=== PATIENT | female | born 1990 | race American Indian/Alaskan Native ===

== ENCOUNTER 2020-11-01 06:10 | Emergency (ER) | payer MEDICAID ==
[2020-11-01 06:16] VITALS: BP 159/98
[2020-11-01] MEDS ORDERED: oxyCODONE /ACETAMINOPHEN 5-325MG TAB PO ONE (07:23)
--- NOTE | 2020-11-01 07:23 | Emergency Department Report ---
ED General Adult HPI - General Chief complaint: Dental/Oral Stated complaint: MIGRAINE,TOOTHACHE PUI?: No Time Seen by Provider: 11/01/20 07:15 Source: patient Mode of arrival: Ambulatory Limitations: No Limitations - History of Present Illness Initial comments: Patient reports left lower dental pain, severe in nature, onset 1 month ago and now worsening. States that she is try to see a dentist but they are not accepting new patients due to Covid. Denies any fevers and states that the pain is severe and radiates upward toward her head. No vomiting, facial swelling or any other complaints. Onset was gradual. No alleviating or exacerbating factors. Severity scale (0 -10): 0 - Related Data Previous Rx's Medication Instructions Recorded Last Taken Type Amoxicillin [Amoxicillin TAB] 875 mg PO BID #20 tablet 11/01/20 Unknown Rx traMADoL [Ultram 50 MG tab] 50 mg PO Q6HR PRN #12 tablet 11/01/20 Unknown Rx ED Review of Systems ROS: Stated complaint: MIGRAINE,TOOTHACHE Other details as noted in HPI Comment: All other systems reviewed and negative ENT: as per HPI ED Past Medical Hx - Past Medical History Previous Medical History?: No - Surgical History Past Surgical History?: No - Social History Smoking Status: Never Smoker Substance Use Type: None - Medications Home Medications: Home Medications Medication Instructions Recorded Confirmed Last Taken Type Amoxicillin [Amoxicillin TAB] 875 mg PO BID #20 tablet 11/01/20 Unknown Rx traMADoL [Ultram 50 MG tab] 50 mg PO Q6HR PRN #12 tablet 11/01/20 Unknown Rx ED Physical Exam - General Limitations: No Limitations General appearance: alert, in no apparent distress - Head Head exam: Present: atraumatic, normocephalic - Eye Eye exam: Present: normal appearance - ENT ENT exam: Present: mucous membranes moist, other (Pain/decay to tooth 17, no facial or neck swelling, no trismus) - Neck Neck exam: Present: normal inspection - Respiratory Respiratory exam: Present: normal lung sounds bilaterally. Absent: respiratory distress - Cardiovascular Cardiovascular Exam: Present: regular rate, normal rhythm. Absent: systolic murmur, diastolic murmur, rubs, gallop - GI/Abdominal GI/Abdominal exam: Present: soft, normal bowel sounds - Extremities Exam Extremities exam: Present: normal inspection - Back Exam Back exam: Present: normal inspection - Neurological Exam Neurological exam: Present: alert, oriented X3 - Psychiatric Psychiatric exam: Present: normal affect, normal mood - Skin Skin exam: Present: warm, dry, intact, normal color. Absent: rash ED Course Vital Signs 11/01/20 06:15 Temperature 97.8 F Pulse Rate 84 Respiratory 18 Rate Blood Pressure 159/98 [Left] O2 Sat by Pulse 100 Oximetry ED Medical Decision Making - Medical Decision Making Patient with dental pain for the past month. Pain seems to be coming from an impacted wisdom tooth, #17, no facial or neck swelling. We will give prescription for antibiotics and advised that she does need to see dental or oral surgery for follow-up. - Differential Diagnosis Dentalgia, abscess Critical care attestation.: If time is entered above; I have spent that time in minutes in the direct care of this critically ill patient, excluding procedure time. ED Disposition Clinical Impression: Pain, dental Disposition: DC-01 TO HOME OR SELFCARE Is pt being admited?: No Condition: Good Prescriptions: Amoxicillin [Amoxicillin TAB] 875 mg PO BID #20 tablet traMADoL [Ultram 50 MG tab] 50 mg PO Q6HR PRN #12 tablet PRN Reason: Pain Referrals: WANDA JOHN MD [Primary Care Provider] - 3-5 Days Time of Disposition: 07:23
== END 2020-11-01 07:38 | disposition home or self-care (01) ==
LOC: ED 06:10
DX: K08.89 Other specified disorders of teeth and supporting structures (principal); G43.909 Migraine, unspecified, not intractable, without status migrainosus; Z79.2 Long term (current) use of antibiotics; Z79.899 Other long term (current) drug therapy
CPT/HCPCS: 99282

== ENCOUNTER 2020-12-05 01:21 | Emergency (ER) | payer MEDICAID ==
--- NOTE | 2020-12-05 06:44 | Emergency Department Report ---
ED ENT HPI - General Chief complaint: Dental/Oral Stated complaint: LYMPH NODES SWOLLEN Source: patient Mode of arrival: Ambulatory Limitations: No Limitations - History of Present Illness Initial comments: Patient is a 30-year-old -[place] female with no past medical history presents to the ED with complaint of acute onset persistent left mandibular premolar molar toothache with swollen gums for the last 2 months. Patient states that she is currently on amoxicillin 875 mg twice a day and ibuprofen 800 mg every 6-8 hours as needed for pain. Patient states that in the last 2 weeks, she developed acute onset severe sore throat with dysphagia and painful anterior left cervical lymphadenopathy which has made her not able to eat. Patient states that because she has not been able to eat she has lost significant amount of weight in the last 2 weeks. Patient states that she has only been taking the medication for the last 3 days. Patient however states that the pain got worse in the last 24 hours. Patient denies fever, chills, nausea, vomiting, cough, nasal and sinus congestion, headache, chest pain or shortness of breath or change in vision. MD complaint: tooth pain (left mandibular premolar), sore throat, other (left anterior cervical paraspinal) -: Sudden, month(s) (2) Location: throat, tooth # (left mandibular premolar and molar toothache) Severity: severe Severity scale (0 -10): 8 Quality: aching, sharp, constant Consistency: constant Improves with: none Worsens with: swallowing Context- Dental: history of dental caries Associated Symptoms: gum swelling (left mandibular), toothache (left mandibular premolar and molar toothache), pain with swallowing, sore throat - Related Data Previous Rx's Medication Instructions Recorded Last Taken Type Amoxicillin [Amoxicillin TAB] 875 mg PO BID #20 tablet 11/01/20 Unknown Rx traMADoL [Ultram 50 MG tab] 50 mg PO Q6HR PRN #12 tablet 11/01/20 Unknown Rx Acetaminophen/Codeine [Tylenol 1 tab PO Q6H PRN #12 tab 12/05/20 Unknown Rx /Codeine # 3 tab] Clindamycin [Clindamycin CAP] 300 mg PO Q8HR #60 capsule 12/05/20 Unknown Rx predniSONE [Deltasone] 40 mg PO QDAY #10 tab 12/05/20 Unknown Rx Allergies Allergy/AdvReac Type Severity Reaction Status Date / Time No Known Allergies Allergy Unverified 12/05/20 06:08 ED Dental HPI - General Chief complaint: Dental/Oral Stated complaint: LYMPH NODES SWOLLEN Source: patient Mode of arrival: Ambulatory Limitations: No Limitations - History of Present Illness Initial comments: Patient is a 30-year-old -[place] female with no past medical history presents to the ED with complaint of acute onset persistent left mandibular premolar molar toothache with swollen gums for the last 2 months. Patient states that she is currently on amoxicillin 875 mg twice a day and ibuprofen 800 mg every 6-8 hours as needed for pain. Patient states that in the last 2 weeks, she developed acute onset severe sore throat with dysphagia and painful anterior left cervical lymphadenopathy which has made her not able to eat. Patient states that because she has not been able to eat she has lost significant amount of weight in the last 2 weeks. Patient states that she has only been taking the medication for the last 3 days. Patient however states that the pain got worse in the last 24 hours. Patient denies fever, chills, nausea, vomiting, cough, nasal and sinus congestion, headache, chest pain or shortness of breath or change in vision. MD complaint: tooth pain, sore throat, other (left mandibular premolar and molar toothache) -: Sudden, month(s) (2) Severity: severe Quality: aching, sharp Consistency: constant Improves with: none Worsens with: swallowing, eating, chewing Context- Dental: history of dental caries, poor dental care Dental Associated Symptons: Yes: Headache, Earache, Sore Throat, Gum Swelling - Related Data Previous Rx's Medication Instructions Recorded Last Taken Type Amoxicillin [Amoxicillin TAB] 875 mg PO BID #20 tablet 11/01/20 Unknown Rx traMADoL [Ultram 50 MG tab] 50 mg PO Q6HR PRN #12 tablet 11/01/20 Unknown Rx Acetaminophen/Codeine [Tylenol 1 tab PO Q6H PRN #12 tab 12/05/20 Unknown Rx /Codeine # 3 tab] Clindamycin [Clindamycin CAP] 300 mg PO Q8HR #60 capsule 12/05/20 Unknown Rx predniSONE [Deltasone] 40 mg PO QDAY #10 tab 12/05/20 Unknown Rx Allergies Allergy/AdvReac Type Severity Reaction Status Date / Time No Known Allergies Allergy Unverified 12/05/20 06:08 ED Review of Systems ROS: Stated complaint: LYMPH NODES SWOLLEN Other details as noted in HPI Constitutional: denies: chills, fever Eyes: denies: eye pain, eye discharge, vision change ENT: throat pain, dental pain (left mandibular premolar and molar toothache; left mandibular gingival swelling and pain). denies: ear pain Respiratory: denies: cough, shortness of breath, wheezing Cardiovascular: denies: chest pain, palpitations Endocrine: no symptoms reported Gastrointestinal: denies: abdominal pain, nausea, vomiting, diarrhea Genitourinary: denies: urgency, dysuria, discharge Musculoskeletal: denies: back pain, joint swelling, arthralgia Skin: denies: rash, lesions Neurological: denies: headache, weakness, paresthesias Psychiatric: denies: anxiety, depression Hematological/Lymphatic: denies: easy bleeding, easy bruising ED Past Medical Hx - Past Medical History Previous Medical History?: Yes Additional medical history: Toothache x 3 months - Surgical History Past Surgical History?: Yes Additional Surgical History: CSection x 2 - Social History Smoking Status: Never Smoker - Medications Home Medications: Home Medications Medication Instructions Recorded Confirmed Last Taken Type Amoxicillin [Amoxicillin TAB] 875 mg PO BID #20 tablet 11/01/20 Unknown Rx traMADoL [Ultram 50 MG tab] 50 mg PO Q6HR PRN #12 tablet 11/01/20 Unknown Rx Acetaminophen/Codeine [Tylenol 1 tab PO Q6H PRN #12 tab 12/05/20 Unknown Rx /Codeine # 3 tab] Clindamycin [Clindamycin CAP] 300 mg PO Q8HR #60 capsule 12/05/20 Unknown Rx predniSONE [Deltasone] 40 mg PO QDAY #10 tab 12/05/20 Unknown Rx ED Physical Exam - General Limitations: No Limitations General appearance: alert, in no apparent distress - Head Head exam: Present: atraumatic, normocephalic, normal inspection - Eye Eye exam: Present: normal appearance, PERRL, EOMI Pupils: Present: normal accommodation - ENT ENT exam: Present: mucous membranes moist, TM's normal bilaterally, normal external ear exam, other (palpable tenderness of left mandibular premolar and molar teeth; swollen tender left anterior cervical lymphadenopathy; palpable severe tenderness of left mandibular gingivitis) - Neck Neck exam: Present: normal inspection, full ROM, lymphadenopathy (anterior cervical lymphadenopathy) - Respiratory Respiratory exam: Present: normal lung sounds bilaterally. Absent: respiratory distress, wheezes, rales, rhonchi, chest wall tenderness, accessory muscle use, decreased breath sounds, prolonged expiratory - Cardiovascular Cardiovascular Exam: Present: regular rate, normal rhythm, normal heart sounds. Absent: systolic murmur, diastolic murmur, rubs, gallop - GI/Abdominal GI/Abdominal exam: Present: soft, normal bowel sounds. Absent: distended, tenderness, guarding, rebound, hyperactive bowel sounds, hypoactive bowel sounds, organomegaly - Extremities Exam Extremities exam: Present: normal inspection, full ROM, normal capillary refill - Back Exam Back exam: Present: normal inspection, full ROM. Absent: tenderness, CVA tenderness (R), CVA tenderness (L), muscle spasm, paraspinal tenderness, vertebral tenderness - Neurological Exam Neurological exam: Present: alert, oriented X3, CN II-XII intact, normal gait, reflexes normal - Psychiatric Psychiatric exam: Present: normal affect, normal mood - Skin Skin exam: Present: warm, dry, intact, normal color. Absent: rash ED Course Vital Signs 12/05/20 06:09 Temperature 98.6 F Pulse Rate 86 Respiratory 18 Rate Blood Pressure 148/94 O2 Sat by Pulse 100 Oximetry ED Medical Decision Making - Medical Decision Making This is a 30-year-old -[place] female with no past medical history presents to the ED with complaint of acute onset persistent left mandibular premolar molar toothache with swollen gums for the last 2 months. Patient states that she is currently on amoxicillin 875 mg twice a day and ibuprofen 800 mg every 6-8 hours as needed for pain. Patient states that in the last 2 weeks, she developed acute onset severe sore throat with dysphagia and painful anterior left cervical lymphadenopathy which has made her not able to eat. Patient states that because she has not been able to eat she has lost significant amount of weight in the last 2 weeks. Patient states that she has only been taking the medication for the last 3 days. Patient however states that the pain got worse in the last 24 hours. In the ED, patient is alert and oriented x3 and is not in any distress. Patient was discharged home on medications including new antibiotics clindamycin and was advised to stop taking amoxicillin and instead switch to clindamycin. Patient was also given more pain medications and advised to follow-up with her dentist and primary care physician in 7 to 10 days for reevaluation or return to the ED immediately if symptoms get worse. - Differential Diagnosis Dental abscess; pharyngitis; lymphadenopathy; gingivitis; dental caries Critical care attestation.: If time is entered above; I have spent that time in minutes in the direct care of this critically ill patient, excluding procedure time. ED Disposition Clinical Impression: Acute gingivitis, Anterior cervical adenopathy, Dental abscess Acute pharyngitis Qualifiers: Pharyngitis/tonsillitis etiology: unspecified etiology Qualified Code(s): J02.9 - Acute pharyngitis, unspecified Disposition: TO HOME OR SELFCARE Is pt being admited?: No Does the pt Need Aspirin: No Condition: Stable Instructions: Pharyngitis, [id number], Lymphadenopathy, Trench Mouth, Dental Abscess, [id number] Additional Instructions: Take medication with food, drink plenty of fluids and follow-up with your primary care physician or dentist in 7 to 10 days for reevaluation. Return to the ED immediately if symptoms get worse. Prescriptions: Clindamycin [Clindamycin CAP] 300 mg PO Q8HR #60 capsule predniSONE [Deltasone] 40 mg PO QDAY #10 tab Acetaminophen/Codeine [Tylenol /Codeine # 3 tab] 1 tab PO Q6H PRN #12 tab PRN Reason: Pain , Severe (7-10) Referrals: [facility] [Outside] - 3-5 Days Time of Disposition: 06:48 Print Language: GABONESE
[2020-12-05 07:12] VITALS: BP 129/89
== END 2020-12-05 07:12 | disposition home or self-care (01) ==
LOC: ED 01:21
DX: J02.9 Acute pharyngitis, unspecified (principal); R59.0 Localized enlarged lymph nodes; K05.00 Acute gingivitis, plaque induced; K04.7 Periapical abscess without sinus; Z98.890 Other specified postprocedural states; Z79.2 Long term (current) use of antibiotics; Z79.899 Other long term (current) drug therapy
CPT/HCPCS: 99282

== ENCOUNTER 2020-12-23 23:01 | Emergency (ER) | payer MEDICAID ==
[2020-12-24 00:42] VITALS: BP 156/96
[2020-12-24] MEDS ORDERED: dexAMETHasone 20 MG/5 ML VIAL IM ONE (00:43)
[2020-12-24] MEDS ORDERED: METOCLOPRAMIDE 10 MG TAB PO ONE (00:43)
[2020-12-24] MEDS ORDERED: diphenhydrAMINE 25 MG CAP PO ONE (00:43)
--- NOTE | 2020-12-24 01:25 | Emergency Department Report ---
HPI - General Chief Complaint: Allergic Reaction Time Seen by Provider: 12/24/20 00:43 - HPI HPI: Patient 30-year-old -[place] female who presents for allergic reaction. Patient unsure of substance however started to have itching for the past 3 days intermittently resolved with Benadryl however return, symptoms rated at 5/10. There are no hives, no shortness of breath, no wheezing no stridor. There is been no nausea vomiting or palpitations. Patient states she is tired of itching however. Patient does endorse being on clindamycin 300 mg p.o. 3 times daily for the past 3 weeks for dental abscess. She has 3 days remaining. There are no other exacerbating or relieving factors. ED Past Medical Hx - Past Medical History Previous Medical History?: Yes Additional medical history: Toothache x 3 months - Surgical History Past Surgical History?: Yes Additional Surgical History: CSection x 2 - Social History Smoking Status: Never Smoker Substance Use Type: None - Medications Home Medications: Home Medications Medication Instructions Recorded Confirmed Last Taken Type Amoxicillin [Amoxicillin TAB] 875 mg PO BID #20 tablet 11/01/20 Unknown Rx traMADoL [Ultram 50 MG tab] 50 mg PO Q6HR PRN #12 tablet 11/01/20 Unknown Rx Acetaminophen/Codeine [Tylenol 1 tab PO Q6H PRN #12 tab 12/05/20 Unknown Rx /Codeine # 3 tab] Clindamycin [Clindamycin CAP] 300 mg PO Q8HR #60 capsule 12/05/20 Unknown Rx predniSONE [Deltasone] 40 mg PO QDAY #10 tab 12/05/20 Unknown Rx EPINEPHrine [Epipen 2-Christiano] 0.3 mg IJ PRN #1 auto.injct 12/24/20 Unknown Rx Famotidine [Pepcid] 20 mg PO BID #14 tablet 12/24/20 Unknown Rx Triamcinolone Acetonide 80 mg IJ BID 7 Days #1 tube 12/24/20 Unknown Rx [Kenalog-80] diphenhydrAMINE [Benadryl CAP] 25 mg PO Q8HR PRN #30 capsule 12/24/20 Unknown Rx predniSONE [Deltasone] 40 mg PO QDAY 5 Days #10 tab 12/24/20 Unknown Rx ED Review of Systems ROS: Stated complaint: BROKE OUT IN HIVES/CHEST PAIN/ABDOMINAL PAIN Other details as noted in HPI Constitutional: denies: chills, fever Eyes: denies: eye pain, eye discharge, vision change ENT: denies: ear pain, throat pain Respiratory: denies: cough, shortness of breath, wheezing Cardiovascular: denies: chest pain, palpitations Endocrine: no symptoms reported Gastrointestinal: denies: abdominal pain, nausea, diarrhea Genitourinary: denies: urgency, dysuria, discharge Musculoskeletal: denies: back pain, joint swelling, arthralgia Skin: rash, pruritus Neurological: denies: headache, weakness, paresthesias Psychiatric: denies: anxiety, depression Hematological/Lymphatic: denies: easy bleeding, easy bruising Physical Exam - Physical Exam Vital Signs: Vital Signs 12/24/20 00:28 Temperature 98.3 F Pulse Rate 94 H Respiratory 16 Rate Blood Pressure 156/96 O2 Sat by Pulse 100 Oximetry General: pt a/o x 3, ambulatory with steady gait, lung sounds clear throughout no wheezing no stridor. Respirations are even and nonlabored. Heart tones S1-S2 no gallop rub or murmur., Abdomen soft nontender there is no nausea vomiting, no neuro deficits , rashes mood raise of bilateral arms and neck, there is no open lesions no open skin no weeping. There is no fever. ED Course Vital Signs 12/24/20 00:28 Temperature 98.3 F Pulse Rate 94 H Respiratory 16 Rate Blood Pressure 156/96 O2 Sat by Pulse 100 Oximetry - Reevaluation(s) Reevaluation #1: Benadryl, Decadron, Pepcid symptoms are relieved. 12/24/20 02:35 ED Medical Decision Making - Medical Decision Making Patient advises since symptoms are resolved plan DC to home with prescriptions. Continue to follow with dentist. Warm compresses to back abscess. Return to ED should symptoms worsen. Patient verbalizes agreement and understanding with discharge plan. Patient has completed EpiPen training. Will be DC'd to home in stable condition at this time. Critical care attestation.: If time is entered above; I have spent that time in minutes in the direct care of this critically ill patient, excluding procedure time. ED Disposition Clinical Impression: Allergic reaction Qualifiers: Encounter type: initial encounter Qualified Code(s): T78.40XA - Allergy, unspecified, initial encounter Disposition: DC-01 TO HOME OR SELFCARE Is pt being admited?: No Does the pt Need Aspirin: No Condition: Stable Instructions: Allergies, Adult, [id number], How to Use an Auto-Injector Pen, Skin Abscess Prescriptions: diphenhydrAMINE [Benadryl CAP] 25 mg PO Q8HR PRN #30 capsule PRN Reason: allergies predniSONE [Deltasone] 40 mg PO QDAY 5 Days #10 tab EPINEPHrine [Epipen 2-Christiano] 0.3 mg IJ PRN #1 auto.injct Triamcinolone Acetonide [Kenalog-80] 80 mg IJ BID 7 Days #1 tube Famotidine [Pepcid] 20 mg PO BID #14 tablet Referrals: MARTHA RAIMREZ MD [Staff Physician] - 3-5 Days Forms: Work/School Release Form(ED) Time of Disposition: 02:45
== END 2020-12-24 03:10 | disposition home or self-care (01) ==
LOC: ED 23:01
DX: T78.40XA Allergy, unspecified, initial encounter (principal); Z98.890 Other specified postprocedural states; Z79.2 Long term (current) use of antibiotics; Z79.899 Other long term (current) drug therapy; X58.XXXA Exposure to other specified factors, initial encounter
CPT/HCPCS: 96372; 99282; J1100

== ENCOUNTER 2020-12-26 01:50 | Emergency (ER) | payer MEDICAID ==
--- NOTE | 2020-12-26 02:08 | Emergency Department Report ---
ED Allergic Reaction HPI - General Stated complaint: ALLERGIC REACTION Time Seen by Provider: 12/26/20 02:02 - History of Present Illness Initial Comments: 30-year-old female presents to the ER today complaint of allergic reaction. Patient states that her symptoms started 4.5 days ago. She states that she has been itching all over, and has been breaking in hives intermittently. Also has been noticing intermittent swelling of her lower lip, itchy throat, mild cough, and intermittent mild wheezing coming from her throat. She was seen here for her symptoms when it first started. She was given an IM injection of steroids and and she was prescribed prednisone 40 mg daily, Benadryl and Pepcid. He states that she has been taking the medications but it seems like it is not helping. She was given an EpiPen but she states that she was afraid to use it. She denies any chest pain, shortness of breath, throat swelling, tongue swelling, or any kind of swelling to her extremities. Patient also states that she has been having diarrhea for the past 4 days, today being the worst, she has had 7-8 episodes of watery stools today with intermittent abdominal pain. Denies any vomiting. She denies fever, chills, UTI symptoms. Patient admits that she has been on antibiotics off and on for dental infection for the past 4 months, most recent was Augmentin about 3 to 4 weeks ago, which was then stopped and switched over to clindamycin when she came in for throat pain but she stopped the clindamycin 4 days ago. Patient denies any prior allergic reactions to any antibiotics or any medications. She denies any new foods, soaps, lotions, or any other new contacts. She denies any recent travel out of country. She denies any ill contacts. Complaint: allergic reaction -: days(s) (4.5) - Related Data Previous Rx's Medication Instructions Recorded Last Taken Type Amoxicillin [Amoxicillin TAB] 875 mg PO BID #20 tablet 11/01/20 Unknown Rx traMADoL [Ultram 50 MG tab] 50 mg PO Q6HR PRN #12 tablet 11/01/20 Unknown Rx Acetaminophen/Codeine [Tylenol 1 tab PO Q6H PRN #12 tab 12/05/20 Unknown Rx /Codeine # 3 tab] Clindamycin [Clindamycin CAP] 300 mg PO Q8HR #60 capsule 12/05/20 Unknown Rx EPINEPHrine [Epipen 2-Christiano] 0.3 mg IJ PRN #1 auto.injct 12/24/20 Unknown Rx Famotidine [Pepcid] 20 mg PO BID #14 tablet 12/26/20 Unknown Rx Prednisone [predniSONE 10 mg 10 mg PO .TAPER #1 tab.ds.pk 12/26/20 Unknown Rx (6-Day Pack, 21 Tabs)] hydrOXYzine HCL [Atarax] 25 mg PO Q6HR PRN #30 tablet 12/26/20 Unknown Rx Allergies Allergy/AdvReac Type Severity Reaction Status Date / Time No Known Allergies Allergy Unverified 12/05/20 06:08 ED Review of Systems ROS: Stated complaint: ALLERGIC REACTION Other details as noted in HPI Comment: All other systems reviewed and negative Constitutional: denies: chills, fever ENT: other (itchin throat). denies: ear pain, throat pain, dental pain, hearing loss, epistaxis, congestion Cardiovascular: denies: chest pain, palpitations Gastrointestinal: abdominal pain, diarrhea. denies: nausea, vomiting Skin: rash, pruritus Neurological: denies: headache, weakness, paresthesias Psychiatric: denies: anxiety, depression ED Past Medical Hx - Past Medical History Additional medical history: Toothache x 3 months - Surgical History Additional Surgical History: CSection x 2 - Social History Smoking Status: Never Smoker Substance Use Type: None - Medications Home Medications: Home Medications Medication Instructions Recorded Confirmed Last Taken Type Amoxicillin [Amoxicillin TAB] 875 mg PO BID #20 tablet 11/01/20 Unknown Rx traMADoL [Ultram 50 MG tab] 50 mg PO Q6HR PRN #12 tablet 11/01/20 Unknown Rx Acetaminophen/Codeine [Tylenol 1 tab PO Q6H PRN #12 tab 12/05/20 Unknown Rx /Codeine # 3 tab] Clindamycin [Clindamycin CAP] 300 mg PO Q8HR #60 capsule 12/05/20 Unknown Rx EPINEPHrine [Epipen 2-Christiano] 0.3 mg IJ PRN #1 auto.injct 12/24/20 Unknown Rx Famotidine [Pepcid] 20 mg PO BID #14 tablet 12/26/20 Unknown Rx Prednisone [predniSONE 10 mg 10 mg PO .TAPER #1 tab.ds.pk 12/26/20 Unknown Rx (6-Day Pack, 21 Tabs)] hydrOXYzine HCL [Atarax] 25 mg PO Q6HR PRN #30 tablet 12/26/20 Unknown Rx ED Physical Exam - General General appearance: alert, in no apparent distress, anxious - Head Head exam: Present: atraumatic, normocephalic, normal inspection - Eye Eye exam: Present: normal appearance, PERRL, EOMI Pupils: Present: normal accommodation - ENT ENT exam: Present: normal exam, normal orophraynx, mucous membranes moist - Neck Neck exam: Present: normal inspection, full ROM - Respiratory Respiratory exam: Present: normal lung sounds bilaterally. Absent: respiratory distress, wheezes, rales, rhonchi, stridor - Cardiovascular Cardiovascular Exam: Present: regular rate, normal heart sounds - GI/Abdominal GI/Abdominal exam: Present: soft, distended. Absent: tenderness - Back Exam Back exam: Present: normal inspection - Neurological Exam Neurological exam: Present: alert, oriented X3, CN II-XII intact, normal gait - Psychiatric Psychiatric exam: Present: normal affect, anxious - Skin Skin exam: Present: intact. Absent: rash, urticaria ED Course Vital Signs 12/26/20 12/26/20 12/26/20 01:57 03:00 04:22 Temperature 98.6 F Pulse Rate 109 H 79 Respiratory 18 20 12 Rate Blood Pressure 154/104 145/79 O2 Sat by Pulse 99 99 Oximetry ED Medical Decision Making - Lab Data Result diagrams: 12/26/20 02:23 12/26/20 02:23 - Medical Decision Making Labs reviewed And unremarkable. Patient resting comfortably in the bed, and she does not appear to be in any pain or respiratory distress. She is not toxic, or ill.. She is neurologically intact. No evidence of anaphylaxis. She has no angioedema. Her airway is intact. She has no trismus or drooling. No stridor on exam. She has a soft nontender abdomen. Her vital signs have been stable throughout stay. No further work-up, admission or emergent consult indicated at this time. Discussed lab results with patient. Recommend that she follows up with the primary care doctor for referral to installation superintendent for allergy testing. Discussed treatment plan with patient. She expressed understanding of instruct ions and agree with plan. Patient was stable at time of discharge. Critical care attestation.: If time is entered above; I have spent that time in minutes in the direct care of this critically ill patient, excluding procedure time. ED Disposition Clinical Impression: Allergic reaction, Diarrhea Disposition: DC-01 TO HOME OR SELFCARE Is pt being admited?: No Does the pt Need Aspirin: No Condition: Stable Instructions: Allergies, Adult, [id number], Diarrhea, Adult, [id number], Probiotics Additional Instructions: Stop the prednisone 40mg and start the taper prednisone, continue the pepcid, stop the benadryl and start the atarax. You can take Imodium [id number] to help with the diarrhea. Drink lots of fluids to maintain hydration. I recommend follow-up with the primary care doctor listed on your discharge instructions for referral to a local installation superintendent for allergy testing. Return to the ER if your symptoms changes or worsens in any way. Prescriptions: hydrOXYzine HCL [Atarax] 25 mg PO Q6HR PRN #30 tablet PRN Reason: Itching Famotidine [Pepcid] 20 mg PO BID #14 tablet Prednisone [predniSONE 10 mg (6-Day Pack, 21 Tabs)] 10 mg PO .TAPER #1 tab.ds.pk Referrals: LYDIA GROVESSELIGMAN MD OMAYRA [Primary Care Provider] - 3-5 Days Time of Disposition: 03:58
[2020-12-26] MEDS ORDERED: methylPREDNISolone Sod Succinate 125 MG/2 ML INJ IV ONE (02:09)
[2020-12-26] MEDS ORDERED: FAMOTIDINE 20 MG/2 ML INJ IV ONE (02:09)
[2020-12-26] MEDS ORDERED: diphenhydrAMINE 50 MG/ML VIAL IV ONE (02:09)
[2020-12-26] MEDS ORDERED: SODIUM CHLORIDE 0.9% 1000 ML 1,000 ML IV ONE (02:10)
[2020-12-26 03:08] LABS: Basophils % (Auto) 0.3 % (0.0-1.8); Hemoglobin 13.7 gm/dl (10.1-14.3); Lymphocytes # (Auto) 3.3 K/mm3 (1.2-5.4); Lymphocytes % (Auto) 36.4 % (13.4-35.0); Mean Corpuscular HGB Conc 34 % (30-34); Mean Corpuscular Volume 95 fl (79-97); Monocytes # (Auto) 0.8 K/mm3 (0.0-0.8); Monocytes % (Auto) 9.1 % (0.0-7.3); Platelet Count 303 K/mm3 (140-440); Red Blood Count 4.29 M/mm3 (3.65-5.03); Red Cell Distribution Width 12.3 % (13.2-15.2)
[2020-12-26 03:26] LABS: Alanine Aminotransferase 12 units/L (7-56); Albumin 4.5 g/dL (3.9-5); BUN/Creatinine Ratio 19; Blood Urea Nitrogen 15 mg/dL (7-17); Calcium 9.5 mg/dL (8.4-10.2); Hemolysis Index 3
[2020-12-26 04:25] VITALS: BP 145/79
== END 2020-12-26 04:41 | disposition home or self-care (01) ==
LOC: ED 01:50
DX: T78.40XA Allergy, unspecified, initial encounter (principal); R19.7 Diarrhea, unspecified; Z98.890 Other specified postprocedural states; Z79.2 Long term (current) use of antibiotics; Z79.899 Other long term (current) drug therapy; X58.XXXA Exposure to other specified factors, initial encounter
CPT/HCPCS: 36415; 80053; 83690; 83735; 84703; 85025; 96361; 96374; 96375; 99283; J1200; J2930; J7030

== ENCOUNTER 2021-08-30 07:14 | Emergency (ER) | payer MEDICAID ==
[2021-08-30] MEDS ORDERED: predniSONE 20 MG TAB PO ONE (07:31)
[2021-08-30] MEDS ORDERED: KETOROLAC 60 MG/2 ML INJ IM ONE (07:31)
[2021-08-30 07:57] VITALS: BP 130/92
[2021-08-30 08:22] LABS: Bacteria,Urine 2+ /HPF (Negative); Bilirubin,Urine NEG (Negative); Blood,Urine NEG (Negative); Color,Urine Yellow (Yellow); Mucus,Urine 3+ /HPF
[2021-08-30 08:25] LABS: HCG Qualitative,Urine Negative (Negative)
--- NOTE | 2021-08-30 08:39 | Emergency Department Report ---
ED Back Pain/Injury HPI - General Chief Complaint: Back Pain/Injury Stated Complaint: LOWER BACK PAIN Time Seen by Provider: 08/30/21 07:19 Source: patient Limitations: No Limitations - History of Present Illness Initial Comments: This is a 30-year-old female nontoxic, well nourished in appearance, no acute signs of distress presents to the ED with c/o of acute on chronic lower back pain x 1 day. Patient stated that yesterday she was moving around and developed pain and worsened this morning. Patient denies any radiation of pain. Patient denies any injuries or trauma. Denies any bladder or bowel instability. Patient denies any urinary symptoms. Denies any fever, chills, nausea, vomiting, headache, stiff neck, chest pain or shortness of breath. Patient denies any numbness or tingling. Denies any allergies. Denies significant past medical history. MD Complaint: back pain -: days(s) Similar Symptoms Previously: Yes Place: work Radiation: none Severity: mild Severity scale (0 -10): 3 Quality: aching Consistency: intermittent Improves With: immobilization, sitting upright Worsens With: movement, walking Context: while lifting, turning/twisting Associated Symptoms: denies other symptoms. denies: confusion, weakness, chest pain, numbness, difficulty walking, cough, difficulty urinating, diaphoresis, incontinence, fever/chills, constipation, headaches, abdominal pain, loss of appetite, malaise, nausea/vomiting, rash, seizure, shortness of breath, syncope - Related Data Previous Rx's Medication Instructions Recorded Last Taken Type Amoxicillin [Amoxicillin TAB] 875 mg PO BID #20 tablet 11/01/20 Unknown Rx traMADoL [Ultram 50 MG tab] 50 mg PO Q6HR PRN #12 tablet 11/01/20 Unknown Rx Acetaminophen/Codeine [Tylenol 1 tab PO Q6H PRN #12 tab 12/05/20 Unknown Rx /Codeine # 3 tab] Clindamycin [Clindamycin CAP] 300 mg PO Q8HR #60 capsule 12/05/20 Unknown Rx EPINEPHrine [Epipen 2-Christiano] 0.3 mg IJ PRN #1 auto.injct 12/24/20 Unknown Rx Famotidine [Pepcid] 20 mg PO BID #14 tablet 12/26/20 Unknown Rx Prednisone [predniSONE 10 mg 10 mg PO .TAPER #1 tab.ds.pk 12/26/20 Unknown Rx (6-Day Pack, 21 Tabs)] hydrOXYzine HCL [Atarax] 25 mg PO Q6HR PRN #30 tablet 12/26/20 Unknown Rx Cyclobenzaprine [Flexeril] 10 mg PO QHS PRN #10 tablet 08/30/21 Unknown Rx Naproxen 500 mg PO Q12H PRN #12 tablet 08/30/21 Unknown Rx Allergies Allergy/AdvReac Type Severity Reaction Status Date / Time No Known Allergies Allergy Unverified 12/05/20 06:08 ED Review of Systems ROS: Stated complaint: LOWER BACK PAIN Other details as noted in HPI Comment: All other systems reviewed and negative Constitutional: denies: chills, fever Eyes: denies: eye pain, eye discharge, vision change ENT: denies: ear pain, throat pain Respiratory: denies: cough, shortness of breath, wheezing Cardiovascular: denies: chest pain, palpitations Endocrine: no symptoms reported Gastrointestinal: denies: abdominal pain, nausea, diarrhea Genitourinary: denies: urgency, dysuria, discharge Musculoskeletal: back pain. denies: joint swelling, arthralgia Skin: denies: rash, lesions Neurological: denies: headache, weakness, paresthesias Psychiatric: denies: anxiety, depression Hematological/Lymphatic: denies: easy bleeding, easy bruising ED Past Medical Hx - Past Medical History Previous Medical History?: No Additional medical history: Toothache x 3 months - Surgical History Past Surgical History?: Yes Additional Surgical History: CSection x 2 - Social History Smoking Status: Never Smoker Substance Use Type: Alcohol, Marijuana - Medications Home Medications: Home Medications Medication Instructions Recorded Confirmed Last Taken Type Amoxicillin [Amoxicillin TAB] 875 mg PO BID #20 tablet 11/01/20 Unknown Rx traMADoL [Ultram 50 MG tab] 50 mg PO Q6HR PRN #12 tablet 11/01/20 Unknown Rx Acetaminophen/Codeine [Tylenol 1 tab PO Q6H PRN #12 tab 12/05/20 Unknown Rx /Codeine # 3 tab] Clindamycin [Clindamycin CAP] 300 mg PO Q8HR #60 capsule 12/05/20 Unknown Rx EPINEPHrine [Epipen 2-Christiano] 0.3 mg IJ PRN #1 auto.injct 12/24/20 Unknown Rx Famotidine [Pepcid] 20 mg PO BID #14 tablet 12/26/20 Unknown Rx Prednisone [predniSONE 10 mg 10 mg PO .TAPER #1 tab.ds.pk 12/26/20 Unknown Rx (6-Day Pack, 21 Tabs)] hydrOXYzine HCL [Atarax] 25 mg PO Q6HR PRN #30 tablet 12/26/20 Unknown Rx Cyclobenzaprine [Flexeril] 10 mg PO QHS PRN #10 tablet 08/30/21 Unknown Rx Naproxen 500 mg PO Q12H PRN #12 tablet 08/30/21 Unknown Rx ED Physical Exam - General Limitations: No Limitations General appearance: alert, in no apparent distress - Head Head exam: Present: atraumatic, normocephalic - Eye Eye exam: Present: normal appearance - Neck Neck exam: Present: normal inspection, full ROM. Absent: lymphadenopathy - Respiratory Respiratory exam: Absent: respiratory distress - Cardiovascular Cardiovascular Exam: Present: regular rate - GI/Abdominal GI/Abdominal exam: Present: soft. Absent: distended, tenderness - Extremities Exam Extremities exam: Present: normal inspection, full ROM - Back Exam Back exam: Present: normal inspection, full ROM, paraspinal tenderness (lumbar paraspinal, bilateral). Absent: tenderness, CVA tenderness (R), CVA tenderness (L), muscle spasm, vertebral tenderness, rash noted - Expanded Back Exam Expanded Back exam: Absent: saddle anesthesia Back exam: Negative Straight Leg Raising: Left, Right - Neurological Exam Neurological exam: Present: alert, oriented X3, normal gait - Psychiatric Psychiatric exam: Present: normal affect, normal mood - Skin Skin exam: Present: warm, dry, intact, normal color. Absent: rash ED Course Vital Signs 08/30/21 07:21 Temperature 98.2 F Pulse Rate 64 Respiratory 16 Rate Blood Pressure 130/92 O2 Sat by Pulse 98 Oximetry - Reevaluation(s) Reevaluation #1: 08/30/21 08:39 Patient is speaking in full sentences with no signs of distress noted. ED Medical Decision Making - Lab Data Lab Results 08/30/21 Range/Units Unknown Urine Color Yellow (Yellow) Urine Turbidity Slightly-cloudy (Clear) Urine pH 5.0 (5.0-7.0) Ur Specific [place] 1.033 H (1.003-1.030) Urine Protein 30 mg/dl (Negative) mg/dL Urine Glucose (UA) Neg (Negative) mg/dL Urine Ketones Tr (Negative) mg/dL Urine Blood Neg (Negative) Urine Nitrite Neg (Negative) Urine Bilirubin Neg (Negative) Urine Urobilinogen 2.0 (<2.0) mg/dL Ur Leukocyte Esterase Tr (Negative) Urine WBC (Auto) 6.0 (0.0-6.0) /HPF Urine RBC (Auto) 3.0 (0.0-6.0) /HPF U Epithel Cells (Auto) 11.0 (0-13.0) /HPF Urine Bacteria (Auto) 2+ (Negative) /HPF Urine Mucus 3+ /HPF Urine HCG, Qual Negative (Negative) - Medical Decision Making This is a 30-year-old female that presents with low back strain. Patient is stable was examined by me. There is no spinal tenderness. There is no cauda equina syndrome during examination. No bladder or bowel instability. Patient received Toradol 60 mg IM and prednisone in the ED which stated that his symptoms has resolved and subsided. Patient is discharged with muscle relaxant and Naproxen. Patient was instructed not to operate any machinery while taking muscle relaxant as they cause her drowsiness. Patient was referred to Follow-up with a primary care doctor in 3-5 days or if symptoms worsen and continue return to emergency room as soon as possible. At time of discharge, the patient does not seem toxic or ill in appearance. No acute signs of distress noted. Patient agrees to discharge treatment plan of care. No further questions noted by the patient. This chart is dictated with using [employer] D[employer]ation Program Critical care attestation.: If time is entered above; I have spent that time in minutes in the direct care of this critically ill patient, excluding procedure time. ED Disposition Clinical Impression: Low back strain Qualifiers: Encounter type: initial encounter Qualified Code(s): S39.012A - Strain of muscle, fascia and tendon of lower back, initial encounter Disposition: HOME / SELF CARE / HOMELESS Is pt being admited?: No Does the pt Need Aspirin: No Condition: Stable Instructions: Lumbar Strain, Cyclobenzaprine tablets Additional Instructions: Follow-up with your primary care doctor in 3-5 days or if symptoms worsen such as bladder or bowel stability, chest pain, short of breath, numbness or tingling sensation in extremities, headache, dizziness, visual changes, nausea vomiting, or abdominal pain, return back to emergency room as was possible. Take Naproxen and Flexeril as prescribed. Do not operate heavy machinery while taking Flexeril due to sedation Prescriptions: Cyclobenzaprine [Flexeril] 10 mg PO QHS PRN #10 tablet PRN Reason: Muscle Spasm Naproxen 500 mg PO Q12H PRN #12 tablet PRN Reason: Pain , Severe (7-10) Referrals: PRIMARY CAREMD [Referring] - 3-5 Days MARTHA RAMIREZ MD [Staff Physician] - 3-5 Days Forms: Work/School Release Form(ED) Time of Disposition: 08:46
== END 2021-08-30 09:05 | disposition home or self-care (01) ==
LOC: ED 07:14
DX: S39.012A Strain of muscle, fascia and tendon of lower back, initial encounter (principal); Z98.890 Other specified postprocedural states; X58.XXXA Exposure to other specified factors, initial encounter; Y93.89 Activity, other specified; Y92.89 Other specified places as the place of occurrence of the external cause; Y99.8 Other external cause status
CPT/HCPCS: 81001; 81025; 96372; 99283; J1885; J7512